=== PATIENT | male | born 2000 | race Two or more races ===

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

== ENCOUNTER 2019-09-04 01:24 | Emergency (ER) | payer MEDICAID ==
[~2019-09-04] VITALS: Ht 175.3 cm; Wt 63.5 kg
[2019-09-04] MEDS ORDERED: SODIUM CHLORIDE 0.9% 1,000 ML IVB ONE (01:45)
[2019-09-04 01:46] LABS: Urine WBC None Seen /hpf (0 - 3)
[2019-09-04 02:07] LABS: Basophils # (auto) 0 uL; Basophils % (auto) 0.2 % (0.0-2.0); Eosinophils # (auto) 0.1 uL; Eosinophils % (auto) 0.5 % (0.0-7.0); Hematocrit 42.2 % (41.0-53.0); Hemoglobin 14.9 g/dL (13.5-17.5); Lymphocytes # (auto) 1.1 uL; Mean Corpuscular Hemoglobin 30.6 pg (28.0-32.0); Mean Corpuscular Hgb Conc. 35.3 g/dL (32.0-36.0); Mean Corpuscular Volume 86.6 fL (80.0-100.0); Monocytes # (auto) 0.6 uL; Monocytes % (auto) 5.5 % (0.0-12.0); Neutrophils # (auto) 9.1 uL; Neutrophils % (auto) 83.8 % (37.0-80.0); Platelet Count (auto) 280 10^3/uL (140-450); Red Blood Cells 4.87 10^6/uL (4.5-5.90); Red Cell Distribution Width 12.7 % (11.8-14.3); White Blood Cell 10.8 10^3/uL (4.4-10.8)
[2019-09-04 02:20] VITALS: BP 132/72
[2019-09-04 02:24] LABS: Alcohol, Urine < 3.0 mg/dL (0-5); Amphetamine Screen, Urine NEGATIVE (NEGATIVE); Barbiturate Scree,Urine NEGATIVE (NEGATIVE); Benzodiazephine Screen, Urine NEGATIVE (NEGATIVE); Cannabinoid Screen, Urine POSITIVE (NEGATIVE); Cocaine Screen, Urine NEGATIVE (NEGATIVE); Opiate Scree,Urine NEGATIVE (NEGATIVE); Phencyclidine Screen, Urine NEGATIVE (NEGATIVE)
[2019-09-04 02:40] LABS: Alanine Aminotransferase 27 U/L (16-61); Albumin 4.1 g/dL (3.4-5.0); Anion Gap 7 (5-15); BUN/Creatinine Ratio 9.7; Blood Urea Nitrogen 12 mg/dL (7-18); Calcium 8.3 mg/dL (8.5-10.1); Carbon Dioxide 27 mmol/L (21-32); Chloride 104 mmol/L (98-107); GFR African American 96 mL/min; GFR Non-African American 79 mL/min; Glucose 131 mg/dL (74-106); Magnesium 1.9 mg/dL (1.6-2.6); Potassium 3.8 mmol/L (3.5-5.1); Salicylate < 1.7 mg/dL (2.8-20.0); Sodium 138 mmol/L (136-145)
[2019-09-04 02:41] LABS: Acetaminophen < 2.0 ug/mL (10-30)
[2019-09-04] MEDS ORDERED: ACETAMINOPHEN 325 MG TAB PO ONE (02:45)
[2019-09-04 02:46] LABS: Alkaline Phosphatase 86 U/L (45-117); Aspartate Aminotransferase 13 U/L (15-37); Bilirubin, Total 0.3 mg/dL (0.2-1.0); Total Protein 7.7 g/dL (6.4-8.2)
[2019-09-04 02:59] LABS: Urine Bacteria NONE SEEN /hpf (None Seen); Urine Blood Negative /uL (Negative); Urine Mucus FEW (None Seen); Urine Specific Gravity 1.028 (1.001-1.035)
[2019-09-04] MEDS ORDERED: ONDANSETRON HCL 4 MG/2 ML VIAL IV ONE (04:00)
[2019-09-04] MEDS ORDERED: FAMOTIDINE (10MG/ML) 2ML VL IV ONE (04:00)
== END 2019-09-04 04:37 | disposition home or self-care (01) ==
LOC: ER 01:24
DX: R07.9 Chest pain, unspecified (principal); R10.9 Unspecified abdominal pain; F12.10 Cannabis abuse, uncomplicated
CPT/HCPCS: 36415; 80053; 80307; 80329; 81001; 83735; 84484; 85025; 93005; 94761; 96374; 96375; 99284; J2405; J3490; J7030

== ENCOUNTER 2020-08-05 02:44 | Emergency (ER) | payer MEDICAID ==
[~2020-08-05] VITALS: Ht 175.3 cm; Wt 68.0 kg
[2020-08-05 04:45] VITALS: BP 144/90
== END 2020-08-05 04:53 | disposition home or self-care (01) ==
LOC: ER 02:47
DX: N43.3 Hydrocele, unspecified (principal)
CPT/HCPCS: 76870

== ENCOUNTER 2020-11-18 19:30 | Emergency (ER) | payer MEDICAID ==
[~2020-11-18] VITALS: Ht 175.3 cm; Wt 65.8 kg
[2020-11-18] MEDS ORDERED: AZITHROMYCIN 250 MG TAB PO ONE (22:15)
[2020-11-18] MEDS ORDERED: cefTRIAXone 1GM/50ML D5W 50 ML IV ONE (22:15)
[2020-11-18] MEDS ORDERED: SODIUM CHLORIDE 0.9% 1,000 ML IV ONE (22:15)
[2020-11-18 22:44] LABS: Urine Bacteria NONE SEEN /hpf (None Seen); Urine Blood 1+ /uL (Negative); Urine Specific Gravity 1.021 (1.001-1.035); Urine WBC 28 /hpf (0 - 3)
[2020-11-18 22:45] VITALS: BP 125/85
[2020-11-18 23:21] LABS: Basophils # (auto) 0 10 ^3/uL (0-0.2); Basophils % (auto) 0.4 % (0.0-2.0); Eosinophils # (auto) 0.1 10 ^3/uL (0-0.8); Eosinophils % (auto) 0.6 % (0.0-7.0); Hematocrit 40.7 % (41.0-53.0); Hemoglobin 14.4 g/dL (13.5-17.5); Lymphocytes # (auto) 1.1 10 ^3/uL (0.4-5.4); Lymphocytes % (auto) 12.3 % (10.0-50.0); Mean Corpuscular Hgb Conc. 35.3 g/dL (32.0-36.0); Mean Corpuscular Volume 87.7 fL (80.0-100.0); Monocytes # (auto) 0.6 10 ^3/uL (0-1.3); Neutrophils # (auto) 7.4 10 ^3/uL (1.6-8.6); Neutrophils % (auto) 79.7 % (37.0-80.0); Platelet Count (auto) 219 10^3/uL (140-450); Red Blood Cells 4.64 10^6/uL (4.5-5.90); Red Cell Distribution Width 12.2 % (11.8-14.3); White Blood Cell 9.3 10^3/uL (4.4-10.8)
[2020-11-18 23:39] LABS: Albumin 4.4 g/dL (3.4-5.0); Calcium 8.8 mg/dL (8.5-10.1); Potassium 4.5 mmol/L (3.5-5.1)
[2020-11-18 23:45] LABS: Bilirubin, Total 0.8 mg/dL (0.2-1.0); Total Protein 8.2 g/dL (6.4-8.2)
== END 2020-11-19 01:15 | disposition home or self-care (01) ==
LOC: ER 19:30
DX: N10 Acute pyelonephritis (principal); Z20.2 Contact with and (suspected) exposure to infections with a predominantly sexual mode of transmission
CPT/HCPCS: 36415; 80053; 81001; 85025; 96365; 99284; J0696; J7030

== ENCOUNTER 2020-12-04 23:44 | Emergency (ER) | payer MEDICAID ==
[~2020-12-04] VITALS: Ht 175.3 cm; Wt 63.5 kg
[2020-12-05] MEDS ORDERED: LIDOCAINE 1% HCL (LOCAL ANESTH.) INJ 20ML MDV IJ ONE (04:00)
[2020-12-05] MEDS ORDERED: ETOMIDATE (2MG/ML) 20ML VIAL IV ONE ×2 (04:41→04:58)
[2020-12-05] MEDS ORDERED: MIDAZOLAM HCL 5 MG/ML-1ML VIAL ONE ×2 (04:41→05:02)
[2020-12-05] MEDS ORDERED: MIDAZOLAM HCL 5 MG/ML-1ML VIAL IV ONE ×2 (04:54→05:03)
[2020-12-05] MEDS ORDERED: MORPHINE SULFATE 4 MG/ML SYR/VIAL IV ONE (06:45)
[2020-12-05] MEDS ORDERED: ONDANSETRON HCL 4 MG/2 ML VIAL IV ONE (06:45)
[2020-12-05 08:35] VITALS: BP 140/86
== END 2020-12-05 08:41 | disposition home or self-care (01) ==
LOC: ER 23:45
DX: S43.102A Unspecified dislocation of left acromioclavicular joint, initial encounter (principal); W18.39XA Other fall on same level, initial encounter; Y93.89 Activity, other specified; Y92.89 Other specified places as the place of occurrence of the external cause; Y99.8 Other external cause status
CPT/HCPCS: 23650; 73020; 73030; 96374; 96375; 99152; 99285; J2001; J2250; J2270; J2405